=== PATIENT | male | born 1935 | race Caucasian/White ===

== ENCOUNTER 2019-04-10 11:47 | Inpatient (IN) ==
[2019-04-10] MEDS ORDERED: *HR* FentaNYL (PF) 100 MCG/2 ML VIAL IVP ONE (12:44)
[2019-04-10 13:21] LABS: INR 1.6; Prothrombin Time 18.2 Seconds (9.4-12.1)
[2019-04-10 13:24] LABS: Activated Partial Thrombo Time 32.2 Seconds (26.0-36.0); Basophils % 0.8 %; Eosinophils # 0.3 K/mcL (0.0-0.6); Eosinophils % 6.2 %; Hematocrit 35.7 % (37.5-50.1); Hemoglobin 11.4 g/dL (12.9-16.9); Immature Granulocytes % 0.6 % (0-4); Lymphocytes # 0.3 K/mcL (0.6-4.6); Lymphocytes % 5.8 %; Mean Corpuscular HGB Conc 31.9 g/dL (31.6-35.5); Mean Corpuscular Hemoglobin 29.8 pg (28.0-33.3); Mean Corpuscular Volume 93.5 fL (83.0-100.0); Mean Platelet Volume 11.6 fL (9.4-12.4); Monocytes # 0.6 K/mcL (0.0-1.3); Monocytes % 10.5 %; Neutrophils # 4.1 K/mcL (1.6-8.9); Platelet Count 138 K/mcL (140-400); Red Blood Count 3.82 M/mcL (4.19-5.50); Red Cell Distribution Width 14.6 % (11.5-14.5); Segmented Neutrophils % 76.1 %; White Blood Count 5.3 K/mcL (4.3-11.1)
[2019-04-10 13:33] LABS: BUN/Creatinine Ratio 36 (6-26); Blood Urea Nitrogen 44 mg/dL (8-23); Calcium 9.1 mg/dL (8.6-10.3); Carbon Dioxide 30 mEq/L (23-29); Chloride 103 mEq/L (98-107); Glucose 99 mg/dL (70-105); Osmolality,Calculated 303 (280-300); Potassium 5.4 mEq/L (3.5-5.1); Sodium 141 mEq/L (136-145); eGFR For African Americans > 60 (> 60); eGFR For Non-African Americans 56 (> 60)
[2019-04-10] MEDS ORDERED: Isovue-370 500 ML BOTTLE IVP ONE (13:33)
[2019-04-10] MEDS ORDERED: *HR* Heparin 5,000 UNIT/ML VIAL IVP ONE (13:41)
[2019-04-10] MEDS ORDERED: *HR* Heparin 5,000 UNIT/ML VIAL IVP PRN ×2 (13:41)
[2019-04-10] MEDS ORDERED: 0.9 % Sodium Chloride 1,000 ML IVC ONE (13:42)
[2019-04-10 14:14] LABS: Heparin anti-factor XA UFH > 2.00 IU/mL (0.30-0.70)
[2019-04-10] MEDS ORDERED: Naloxone 0.4 MG/ML INJ IVP PRN (15:07)
[2019-04-10] MEDS: Heparin 25,000 UNIT/250 ML D5W 25,000 UNIT/250 ML IV.SOLN IVC SCH (15:11)
[2019-04-10] MEDS: Ipratropium/Albuterol Neb 3 ML IH PRN (17:09)
[2019-04-10] MEDS: Budesonide/Formoterol 160/4.5 1 PUFF INH IH SCH (17:09)
[2019-04-10] MEDS: *HR* HYDROcodone/Acet 5/325 mg TABLET PO PRN (19:43)
[2019-04-10] MEDS: carvediloL 25 MG TABLET PO SCH (19:43)
[2019-04-10] MEDS: Melatonin 3 MG TABLET PO PRN (19:47)
[2019-04-11] MEDS: Ipratropium/Albuterol Neb 3 ML IH PRN ×3 (00:56→12:17)
[2019-04-11 05:06] LABS: Alanine Aminotransferase 10 Units/L (7-52); Albumin/Globulin Ratio 1.6 (1.1-2.2); Alkaline Phosphatase 36 Units/L (34-104); Aspartate Amino Transferase 23 Units/L (13-39); BUN/Creatinine Ratio 33 (6-26); Bilirubin,Total 0.4 mg/dL (0.3-1.0); Blood Urea Nitrogen 31 mg/dL (8-23); Calcium 8.2 mg/dL (8.6-10.3); Carbon Dioxide 26 mEq/L (23-29); Chloride 107 mEq/L (98-107); Chol/HDL Ratio 3.8 (0-4.9); Cholesterol 173 mg/dL (< 200); Globulin 1.9 g/dL (2.4-3.5); Glucose 77 mg/dL (70-105); HDL Cholesterol 45 mg/dL (40-59); LDL Cholesterol,Calculated 110 mg/dL (0-99); Magnesium 1.7 mg/dL (1.6-2.6); Osmolality,Calculated 299 (280-300); Phosphorous 2.9 mg/dL (2.7-4.5); Potassium 4.5 mEq/L (3.5-5.1); Sodium 142 mEq/L (136-145); Total Protein 4.9 g/dL (6.4-8.9); Triglycerides 92 mg/dL (< 150); eGFR For African Americans > 60 (> 60); eGFR For Non-African Americans > 60 (> 60)
[2019-04-11] MEDS ORDERED: Regadenoson 0.4 MG/5 ML SYRINGE IVP ONE (06:02)
[2019-04-11] MEDS: Budesonide/Formoterol 160/4.5 1 PUFF INH IH SCH ×2 (07:47→21:36)
[2019-04-11] MEDS: predniSONE 10 MG TABLET PO SCH (10:37)
[2019-04-11] MEDS: Cyanocobalamin (B-12) 1,000 MCG TABLET PO SCH (10:38)
[2019-04-11] MEDS: Aspirin Enteric Coated 81 MG Tablet PO SCH (10:38)
[2019-04-11] MEDS: Cholecalciferol (D-3) 1,000 UNIT (25MCG) TABLET PO SCH (10:38)
[2019-04-11] MEDS: carvediloL 25 MG TABLET PO SCH ×2 (10:38→22:08)
[2019-04-11] MEDS: *HR* HYDROcodone/Acet 5/325 mg TABLET PO PRN ×3 (10:38→23:22)
[2019-04-11] MEDS: Melatonin 3 MG TABLET PO PRN (22:10)
[2019-04-12] MEDS: Heparin 25,000 UNIT/250 ML D5W 25,000 UNIT/250 ML IV.SOLN IVC SCH ×2 (03:09→18:17)
[2019-04-12] MEDS: Ipratropium/Albuterol Neb 3 ML IH PRN ×3 (06:50→23:35)
[2019-04-12 07:18] LABS: Basophils % 0.4 %; Eosinophils # 0.1 K/mcL (0.0-0.6); Eosinophils % 1.9 %; Hematocrit 31.6 % (37.5-50.1); Immature Granulocytes % 0.2 % (0-4); Lymphocytes # 0.3 K/mcL (0.6-4.6); Lymphocytes % 5.7 %; Mean Corpuscular Hemoglobin 30.2 pg (28.0-33.3); Mean Corpuscular Volume 97.2 fL (83.0-100.0); Mean Platelet Volume 11.9 fL (9.4-12.4); Monocytes # 0.5 K/mcL (0.0-1.3); Monocytes % 10.6 %; Neutrophils # 3.8 K/mcL (1.6-8.9); Platelet Count 114 K/mcL (140-400); Red Blood Count 3.25 M/mcL (4.19-5.50); Red Cell Distribution Width 14.8 % (11.5-14.5); Segmented Neutrophils % 81.2 %; White Blood Count 4.7 K/mcL (4.3-11.1)
[2019-04-12 07:28] LABS: BUN/Creatinine Ratio 30 (6-26); Blood Urea Nitrogen 31 mg/dL (8-23); Calcium 8.4 mg/dL (8.6-10.3); Carbon Dioxide 29 mEq/L (23-29); Chloride 105 mEq/L (98-107); Glucose 85 mg/dL (70-105); Hemoglobin 9.8 g/dL (12.9-16.9); Magnesium 1.7 mg/dL (1.6-2.6); Osmolality,Calculated 300 (280-300); Phosphorous 3.7 mg/dL (2.7-4.5); Potassium 4.7 mEq/L (3.5-5.1); Sodium 142 mEq/L (136-145); eGFR For African Americans > 60 (> 60); eGFR For Non-African Americans > 60 (> 60)
[2019-04-12] MEDS: Budesonide/Formoterol 160/4.5 1 PUFF INH IH SCH ×2 (07:56→21:00)
[2019-04-12] MEDS: *HR* HYDROcodone/Acet 5/325 mg TABLET PO PRN ×3 (08:50→23:45)
[2019-04-12] MEDS: Cholecalciferol (D-3) 1,000 UNIT (25MCG) TABLET PO SCH (08:51)
[2019-04-12] MEDS: predniSONE 10 MG TABLET PO SCH (08:51)
[2019-04-12] MEDS: carvediloL 25 MG TABLET PO SCH ×2 (08:51→23:34)
[2019-04-12] MEDS: Cyanocobalamin (B-12) 1,000 MCG TABLET PO SCH (08:51)
[2019-04-12] MEDS: Aspirin Enteric Coated 81 MG Tablet PO SCH (08:51)
[2019-04-12] MEDS: Lisinopril 20 MG TABLET PO SCH (08:51)
[2019-04-12] MEDS: Melatonin 3 MG TABLET PO PRN (23:45)
[2019-04-13 00:45] LABS: Basophils % 0.2 %; Eosinophils % 0.4 %; Hematocrit 33.2 % (37.5-50.1); Hemoglobin 10.7 g/dL (12.9-16.9); Immature Granulocytes % 0.4 % (0-4); Lymphocytes # 0.3 K/mcL (0.6-4.6); Lymphocytes % 5.1 %; Mean Corpuscular HGB Conc 32.2 g/dL (31.6-35.5); Mean Corpuscular Hemoglobin 29.8 pg (28.0-33.3); Mean Corpuscular Volume 92.5 fL (83.0-100.0); Monocytes # 0.5 K/mcL (0.0-1.3); Monocytes % 9.5 %; Neutrophils # 4.8 K/mcL (1.6-8.9); Platelet Count 141 K/mcL (140-400); Red Blood Count 3.59 M/mcL (4.19-5.50); Red Cell Distribution Width 14.9 % (11.5-14.5); Segmented Neutrophils % 84.4 %; White Blood Count 5.7 K/mcL (4.3-11.1)
[2019-04-13 01:05] LABS: BUN/Creatinine Ratio 27 (6-26); Blood Urea Nitrogen 29 mg/dL (8-23); Calcium 8.6 mg/dL (8.6-10.3); Carbon Dioxide 28 mEq/L (23-29); Chloride 105 mEq/L (98-107); Glucose 121 mg/dL (70-105); Osmolality,Calculated 295 (280-300); Potassium 4.8 mEq/L (3.5-5.1); Sodium 139 mEq/L (136-145); eGFR For African Americans > 60 (> 60); eGFR For Non-African Americans > 60 (> 60)
[2019-04-13] MEDS: Ipratropium/Albuterol Neb 3 ML IH SCH ×6 (04:02→23:20)
[2019-04-13] MEDS: Budesonide/Formoterol 160/4.5 1 PUFF INH IH SCH ×2 (07:33→19:53)
[2019-04-13] MEDS: Aspirin Enteric Coated 81 MG Tablet PO SCH (09:11)
[2019-04-13] MEDS: predniSONE 10 MG TABLET PO SCH (09:11)
[2019-04-13] MEDS: carvediloL 25 MG TABLET PO SCH ×2 (09:11→17:17)
[2019-04-13] MEDS: Lisinopril 20 MG TABLET PO SCH (09:11)
[2019-04-13] MEDS: Cholecalciferol (D-3) 1,000 UNIT (25MCG) TABLET PO SCH (09:11)
[2019-04-13] MEDS: Cyanocobalamin (B-12) 1,000 MCG TABLET PO SCH (09:12)
[2019-04-13] MEDS: *HR* HYDROcodone/Acet 5/325 mg TABLET PO PRN ×3 (09:18→21:47)
[2019-04-13] MEDS: Heparin 25,000 UNIT/250 ML D5W 25,000 UNIT/250 ML IV.SOLN IVC SCH (17:18)
[2019-04-13] MEDS ORDERED: 0.9 % Sodium Chloride 1,000 ML ONE (20:32)
[2019-04-13] MEDS ORDERED: Ipratropium/Albuterol Neb 3 ML IH PRN (23:54)
[2019-04-14] MEDS: *HR* HYDROcodone/Acet 5/325 mg TABLET PO PRN ×3 (05:15→20:05)
[2019-04-14] MEDS ORDERED: *HR* Dextrose 50 % in Water (Syg) 50 ML SYRINGE IVP PRN (06:31)
[2019-04-14] MEDS ORDERED: D5% in Water 1,000 ML IVC PRN (06:31)
[2019-04-14] MEDS ORDERED: Dextrose Gel 15 GM/37.5 ML TUBE PO PRN ×2 (06:31)
[2019-04-14] MEDS: Budesonide/Formoterol 160/4.5 1 PUFF INH IH SCH ×2 (07:20→19:58)
[2019-04-14] MEDS: Ipratropium/Albuterol Neb 3 ML IH SCH ×4 (07:20→20:00)
[2019-04-14] MEDS ORDERED: D5% in 0.45% NACL 1,000 ML IVC SCH (07:30)
[2019-04-14 07:40] LABS: Basophils % 0.4 %; Eosinophils # 0.2 K/mcL (0.0-0.6); Eosinophils % 3.9 %; Hemoglobin 10.8 g/dL (12.9-16.9); Immature Granulocytes % 0.4 % (0-4); Lymphocytes # 0.3 K/mcL (0.6-4.6); Lymphocytes % 5.8 %; Mean Corpuscular HGB Conc 31.8 g/dL (31.6-35.5); Mean Corpuscular Hemoglobin 29.9 pg (28.0-33.3); Mean Corpuscular Volume 94.2 fL (83.0-100.0); Mean Platelet Volume 12.3 fL (9.4-12.4); Monocytes # 0.5 K/mcL (0.0-1.3); Monocytes % 8.1 %; Neutrophils # 4.6 K/mcL (1.6-8.9); Platelet Count 141 K/mcL (140-400); Red Blood Count 3.61 M/mcL (4.19-5.50); Red Cell Distribution Width 14.9 % (11.5-14.5); Segmented Neutrophils % 81.4 %; White Blood Count 5.7 K/mcL (4.3-11.1)
[2019-04-14 08:03] LABS: BUN/Creatinine Ratio 33 (6-26); Blood Urea Nitrogen 29 mg/dL (8-23); Calcium 8.8 mg/dL (8.6-10.3); Carbon Dioxide 25 mEq/L (23-29); Chloride 103 mEq/L (98-107); Glucose 50 mg/dL (70-105); Osmolality,Calculated 297 (280-300); Potassium 4.6 mEq/L (3.5-5.1); Sodium 142 mEq/L (136-145); eGFR For African Americans > 60 (> 60); eGFR For Non-African Americans > 60 (> 60)
[2019-04-14] MEDS: Cholecalciferol (D-3) 1,000 UNIT (25MCG) TABLET PO SCH (08:05)
[2019-04-14] MEDS: Lisinopril 20 MG TABLET PO SCH (08:06)
[2019-04-14] MEDS: Cyanocobalamin (B-12) 1,000 MCG TABLET PO SCH (08:06)
[2019-04-14] MEDS: Aspirin Enteric Coated 81 MG Tablet PO SCH (08:06)
[2019-04-14] MEDS: predniSONE 10 MG TABLET PO SCH (08:06)
[2019-04-14] MEDS: carvediloL 25 MG TABLET PO SCH ×2 (08:06→17:14)
[2019-04-14] MEDS: Insulin LISPRO 300 UNITS/3 ML VIAL SQ SCH ×2 (12:03→17:15)
[2019-04-14] MEDS: Heparin 25,000 UNIT/250 ML D5W 25,000 UNIT/250 ML IV.SOLN IVC SCH ×2 (15:40→17:18)
[2019-04-15] MEDS ORDERED: 0.9 % Sodium Chloride 1,000 ML ONE (01:26)
[2019-04-15] MEDS ORDERED: 0.9 % Sodium Chloride 500 ML IVC ONE ×4 (01:34→06:32)
[2019-04-15 01:57] LABS: Basophils % 0.2 %; Eosinophils # 0.1 K/mcL (0.0-0.6); Eosinophils % 1.7 %; Hematocrit 34.8 % (37.5-50.1); Hemoglobin 11.3 g/dL (12.9-16.9); Immature Granulocytes % 0.5 % (0-4); Lymphocytes # 0.1 K/mcL (0.6-4.6); Lymphocytes % 1.8 %; Mean Corpuscular HGB Conc 32.5 g/dL (31.6-35.5); Mean Corpuscular Hemoglobin 30.8 pg (28.0-33.3); Mean Corpuscular Volume 94.8 fL (83.0-100.0); Monocytes % 0.7 %; Neutrophils # 5.7 K/mcL (1.6-8.9); Platelet Count 141 K/mcL (140-400); Red Blood Count 3.67 M/mcL (4.19-5.50); Red Cell Distribution Width 14.9 % (11.5-14.5); Segmented Neutrophils % 95.1 %
[2019-04-15] MEDS: Insulin LISPRO 300 UNITS/3 ML VIAL SQ SCH ×2 (01:57→06:14)
[2019-04-15 02:04] LABS: Heparin anti-factor XA UFH 0.48 IU/mL (0.30-0.70); INR 1.1
[2019-04-15 02:07] LABS: Activated Partial Thrombo Time 25.6 Seconds (26.0-36.0)
[2019-04-15 02:10] LABS: ABG Base Excess 1 mEq/L (-2 to 3); ABG HCO3 28 mEq/L (21-27); ABG Oxygen Saturation 93 % (95-98); ABG PCO2 60 mmHg (35-45); ABG PH 7.28 pH Units (7.32-7.45); ABG PO2 76 mmHg (85-104); ABG TCO2 30 mEq/L (20-26)
[2019-04-15] MEDS ORDERED: Albumin 25% 25gram/100mL 25 GM/100 ML IV.SOLN IVPB ONE ×2 (02:13→02:15)
[2019-04-15 02:21] LABS: Alanine Aminotransferase 11 Units/L (7-52); Albumin 3.2 g/dL (3.5-5.7); Albumin/Globulin Ratio 1.5 (1.1-2.2); Alkaline Phosphatase 57 Units/L (34-104); Aspartate Amino Transferase 25 Units/L (13-39); BUN/Creatinine Ratio 25 (6-26); Bilirubin,Total 0.7 mg/dL (0.3-1.0); Blood Urea Nitrogen 29 mg/dL (8-23); Calcium 8.9 mg/dL (8.6-10.3); Carbon Dioxide 27 mEq/L (23-29); Chloride 101 mEq/L (98-107); Globulin 2.1 g/dL (2.4-3.5); Glucose 118 mg/dL (70-105); Magnesium 1.6 mg/dL (1.6-2.6); Osmolality,Calculated 291 (280-300); Potassium 4.5 mEq/L (3.5-5.1); Sodium 137 mEq/L (136-145); Total Protein 5.3 g/dL (6.4-8.9); eGFR For African Americans > 60 (> 60); eGFR For Non-African Americans 60 (> 60)
[2019-04-15 02:26] LABS: Platelet Estimate Normal (Normal)
[2019-04-15] MEDS: Albumin 25% 25gram/100mL 25 GM/100 ML IV.SOLN IVPB ONE ×2 (02:35→03:45)
[2019-04-15 02:54] LABS: Estimated Average Glucose 123 mg/dl
[2019-04-15] MEDS ORDERED: *HR* LORazepam 2 MG/ML VIAL IVP ONE (03:26)
[2019-04-15 04:18] LABS: ABG Base Excess 0 mEq/L (-2 to 3); ABG HCO3 26 mEq/L (21-27); ABG Oxygen Saturation 95 % (95-98); ABG PCO2 47 mmHg (35-45); ABG PH 7.35 pH Units (7.32-7.45); ABG PO2 82 mmHg (85-104); ABG TCO2 27 mEq/L (20-26)
[2019-04-15 04:34] LABS: Basophils % 0.1 %; Eosinophils # 0.2 K/mcL (0.0-0.6); Eosinophils % 2.1 %; Hematocrit 30.4 % (37.5-50.1); Hemoglobin 9.9 g/dL (12.9-16.9); Immature Granulocytes % 0.5 % (0-4); Lymphocytes # 0.1 K/mcL (0.6-4.6); Lymphocytes % 1.5 %; Mean Corpuscular HGB Conc 32.6 g/dL (31.6-35.5); Mean Corpuscular Hemoglobin 30.7 pg (28.0-33.3); Mean Corpuscular Volume 94.4 fL (83.0-100.0); Monocytes # 0.2 K/mcL (0.0-1.3); Monocytes % 3.1 %; Platelet Count 123 K/mcL (140-400); Red Blood Count 3.22 M/mcL (4.19-5.50); Red Cell Distribution Width 14.8 % (11.5-14.5); Segmented Neutrophils % 92.7 %; White Blood Count 7.5 K/mcL (4.3-11.1)
[2019-04-15 04:54] LABS: BUN/Creatinine Ratio 22 (6-26); Blood Urea Nitrogen 29 mg/dL (8-23); Carbon Dioxide 25 mEq/L (23-29); Chloride 103 mEq/L (98-107); Glucose 101 mg/dL (70-105); Osmolality,Calculated 290 (280-300); Potassium 4.3 mEq/L (3.5-5.1); Sodium 137 mEq/L (136-145); eGFR For African Americans > 60 (> 60); eGFR For Non-African Americans 53 (> 60)
[2019-04-15 05:12] LABS: Platelet Estimate Normal (Normal)
[2019-04-15] MEDS ORDERED: Azithromycin 500 MG in 0.9 % Sodium Chloride 250 ML IVPB SCH (06:00)
[2019-04-15] MEDS ORDERED: Piperacillin/Tazobactam 3.375 GM in 0.9 % Sodium Chloride Mini Bag 100 ML IVPB SCH (08:00)
[2019-04-15] MEDS ORDERED: *HR* Norepinephrine 4 MG/4 ML VIAL IVC ONE (08:10)
[2019-04-15] MEDS ORDERED: D5% in Water 250 ML ONE (08:10)
[2019-04-15] MEDS ORDERED: Dexmedetomidine HCl 400 MCG/100 ML MLS IVC ONE (08:23)
[2019-04-15] MEDS ORDERED: Dexmedetomidine HCl 400 MCG/100 ML MLS IVC SCH (08:30)
[2019-04-15] MEDS: Ipratropium/Albuterol Neb 3 ML IH SCH (08:33)
[2019-04-15 08:44] LABS: Hemoglobin 8.7 g/dL (12.9-16.9); Immature Platelets 8.7 % (1.1-6.1); Mean Corpuscular HGB Conc 32.2 g/dL (31.6-35.5); Mean Corpuscular Hemoglobin 30.4 pg (28.0-33.3); Mean Corpuscular Volume 94.4 fL (83.0-100.0); Mean Platelet Volume 12.5 fL (9.4-12.4); Nucleated Red Blood Cells 0.5 /100 WBC (0); Red Blood Count 2.86 M/mcL (4.19-5.50); White Blood Count 8.4 K/mcL (4.3-11.1)
[2019-04-15 08:49] LABS: Platelet Count 31 K/mcL (140-400)
[2019-04-15 08:59] LABS: Albumin 3.9 g/dL (3.5-5.7); Bilirubin,Total 0.7 mg/dL (0.3-1.0); Calcium 8.6 mg/dL (8.6-10.3); Globulin 1.3 g/dL (2.4-3.5); INR 1.3; Prothrombin Time 15.2 Seconds (9.4-12.1); Total Protein 5.2 g/dL (6.4-8.9)
[2019-04-15 09:01] LABS: Activated Partial Thrombo Time 50.3 Seconds (26.0-36.0)
[2019-04-15 09:12] LABS: Troponin I 0.08 ng/mL (< 0.04)
[2019-04-15 09:17] LABS: Monocytes # 0.3 K/mcL (0.0-1.3); Neutrophils # 7.1 K/mcL (1.6-8.9)
[2019-04-15 09:20] LABS: Platelet Estimate Marked Decrease (Normal); Poikilocytosis 1+ (Not Present)
[2019-04-15] MEDS ORDERED: Norepinephrine 4 MG in 0.9 % Sodium Chloride 250 ML IVC SCH (09:45)
[2019-04-15] MEDS ORDERED: EPINEPHrine 5 MG in D5% in Water 250 ML IVC SCH (09:45)
[2019-04-15 10:06] VITALS: BP 79/36
[2019-04-15] MEDS ORDERED: *HR* Etomidate 20 MG/10 ML AMPUL IVP ONE (10:12)
[2019-04-15] MEDS ORDERED: *HR* Midazolam HCl 5 MG/5 ML VIAL IVP ONE (10:12)
[2019-04-15] MEDS ORDERED: *HR* Atropine Sulfate 1 MG/10 ML SYRINGE IV ONE (10:12)
[2019-04-15] MEDS ORDERED: Aminoglycoside Consult 1 EACH MC ONE (10:12)
[2019-04-15] MEDS ORDERED: *HR* EPINEPHrine 1 MG/10 ML SYRINGE IVP ONE (10:12)
[2019-04-15 10:14] LABS: Magnesium 1.9 mg/dL (1.6-2.6); Phosphorous 4.2 mg/dL (2.7-4.5)
== END 2019-04-15 10:13 | disposition expired | DRG 300 ==
LOC: 2ANU 11:47 → EMEROOARM 11:47 → SUATTDRO 15:23 → OBSVTOIN 15:23 → 2ANU 16:05 → 2NNU 04-15 02:29 → ICNU 04-15 06:36
PROVIDERS: ADMIT Internal Medicine; ATTEND Internal Medicine